=== PATIENT | male | born 1950 | race Caucasian/White ===

== ENCOUNTER → 2017-01-26 | Outpatient (CLI) | payer BC, OTHER ==
[2017-01-26 21:32] LABS: MEAN CORPUSCULAR HEMOGLOBIN 29.2 pg (27.0-33.0); MEAN CORPUSCULAR HGB CONC 33.6 g/dl (32.0-36.5); MEAN CORPUSCULAR VOLUME 86.7 fl (80.0-96.0); RED CELL DISTRIBUTION WIDTH 14.1 % (11.5-14.5); WHITE BLOOD COUNT 7.4 K/mm3 (4.0-10.0)
== END ==
LOC: M LRY 17:56
PROVIDERS: ATTEND Podiatrist
DX: M10.9 Gout, unspecified (principal)

== ENCOUNTER → 2017-02-23 | Outpatient (REF) | payer BC, OTHER ==
[2017-02-26 00:06] LABS: Lyme Disease IgG Ab 18 kDa Ban Present (.); Lyme Disease IgG Ab 23 kDa Ban Present (.); Lyme Disease IgG Ab 28 kDa Ban Present (.); Lyme Disease IgG Ab 30 kDa Ban Present (.); Lyme Disease IgG Ab 39 kDa Ban Present (.); Lyme Disease IgG Ab 41 kDa Ban Present (.); Lyme Disease IgG Ab 45 kDa Ban Present (.); Lyme Disease IgG Ab 58 kDa Ban Present (.); Lyme Disease IgG Ab 66 kDa Ban Present (.); Lyme Disease IgG Ab 93 kDa Ban Absent (.); Lyme Disease IgG West Blot Int Positive (.); Lyme Disease IgG/IgM Antibodie 2.28 ISR (0.00-0.90); Lyme Disease IgM Ab 23 kDa Ban Present (.); Lyme Disease IgM Ab 39 kDa Ban Absent (.); Lyme Disease IgM Ab 41 kDa Ban Absent (.); Lyme Disease IgM Ab Quantitati 2.63 index (0.00-0.79); Lyme Disease IgM West Blot Int Negative (.)
== END ==
LOC: M LAB REF 12:57
PROVIDERS: ATTEND Internal Medicine
DX: M25.50 Pain in unspecified joint (principal)

== ENCOUNTER → 2017-03-27 | Outpatient (REF) | payer OTHER | LOC: M LAB REF 16:18 | PROVIDERS: ATTEND Internal Medicine | DX: M25.569 Pain in unspecified knee (principal) ==

== ENCOUNTER → 2017-05-12 | Outpatient (CLI) | payer BC, OTHER ==
--- NOTE | 2017-05-12 17:12 | REP ---
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 Worsening right knee pain. No known injury. No comparison radiographs. Technique: Axial, coronal and sagittal imaging planes utilized. T1, proton density and T2-weighted scans were obtained with and without fat saturation. MRI findings: There is a moderate sized knee joint effusion. There is a medially positioned suprapatellar plica. A smaller plica is seen laterally in the suprapatellar bursa. There is moderate chondromalacia patella diffusely with partial thickness pitting of the articular cartilage. There is severe chondromalacia of the medial tibiofemoral and to a somewhat lesser extent the lateral tibiofemoral compartment. Medially there is full-thickness articular cartilage signal abnormality and irregularity over a wide area of the medial articulation. Smaller partial-thickness articular cartilage lesions are seen in the lateral compartment. There is a degenerative tear of the posterior horn of the medial meniscus extending to mid body level with fraying and irregularity of the inner free margin and some medial meniscal extrusion. There is associated medial compartment osteophyte formation. No lateral meniscal tear is appreciated. There is no evidence of medial or lateral collateral ligament disruption. Medial collateral ligament bulges medially because of the meniscal extrusion and spurring. Anterior and posterior cruciate ligaments appear intact. Patellar and quadriceps tendons have an intact appearance. There is some posteromedial joint aligned fluid containing a rectangular shaped low T1 low T2 signal intensity structure most compatible with cartilaginous loose body. This measures 7 mm in greatest diameter. No other loose body is visualized. There is a tiny slit-like Rivera's cyst. Cortical and medullary bone signal intensity are normal except for a small subcortical cyst adjacent to the proximal tibiofibular articulation in the proximal tibia. 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 Degenerative tear pattern medial meniscus. Cartilaginous loose body. Signed by Ferny Yepez MD 05/13/2017 11:17 A
== END ==
LOC: M RAD 14:57
PROVIDERS: ATTEND Orthopaedic Surgery
DX: M25.461 Effusion, right knee (principal); M17.11 Unilateral primary osteoarthritis, right knee; M94.261 Chondromalacia, right knee; S83.241A Other tear of medial meniscus, current injury, right knee, initial encounter; X58.XXXA Exposure to other specified factors, initial encounter; Y92.89 Other specified places as the place of occurrence of the external cause; Y93.89 Activity, other specified; Y99.8 Other external cause status; Z86.19 Personal history of other infectious and parasitic diseases

== ENCOUNTER → 2018-07-09 | Outpatient (REF) | payer OTHER ==
[2018-07-11 00:08] LABS: TESTOSTERONE FREE (DIRECT) 2.7 pg/mL (6.6-18.1)
== END ==
LOC: M LAB REF 12:18
PROVIDERS: ATTEND Internal Medicine
DX: N52.9 Male erectile dysfunction, unspecified (principal)

== ENCOUNTER → 2019-11-08 | Outpatient (REF) | payer MEDICARE ==
[2019-11-10 15:13] LABS: Lyme Disease IgG/IgM Antibodie <0.91 ISR (0.00-0.90); Lyme Disease IgM Ab Quantitati <0.80 index (0.00-0.79)
== END ==
LOC: M LAB REF 16:05
PROVIDERS: ATTEND Internal Medicine
DX: M25.50 Pain in unspecified joint (principal); Z11.59 Encounter for screening for other viral diseases

== ENCOUNTER → 2021-11-05 | Outpatient (CLI) | payer MEDICARE | LOC: M WUC 09:44 | PROVIDERS: ATTEND Internal Medicine | DX: M25.511 Pain in right shoulder (principal) ==

== ENCOUNTER → 2021-11-25 | Outpatient (CLI) | payer MEDICARE | LOC: M RAD 08:21 | PROVIDERS: ATTEND Internal Medicine | DX: I10 Essential (primary) hypertension (principal) ==

== ENCOUNTER → 2021-12-24 | Outpatient (CLI) | payer MEDICARE ==
[~2021-12-24] MED LIST: ISOVUE-370 76% 100ML VIAL As Ordered ONE
== END ==
LOC: M RAD 08:27
PROVIDERS: ATTEND Internal Medicine
DX: R93.5 Abnormal findings on diagnostic imaging of other abdominal regions, including retroperitoneum (principal); R91.8 Other nonspecific abnormal finding of lung field
CPT/HCPCS: 75635; Q9967

== ENCOUNTER 2023-01-29 10:18 | Day surgery (SDC) | payer MEDICARE ==
[~2023-01-29] VITALS: Ht 175.3 cm; Wt 100.7 kg
[~2023-01-29 10:18] MED LIST changes: +ACET-683 PO; +BAYE81TA7 PO; +BISO5TAB14 PO; +CHLO125TA PO; +CINN500C15 PO; +IRBE300T7 PO; -ISOVUE-370 76% 100ML VIAL As Ordered ONE; +JARD1TAB PO; +JARD1TAB3 PO; +METF10004 PO; +NS 1,000 ML IV ONE; +POTA-151 PO
[2023-01-29] MEDS ORDERED: fentaNYL 100 MCG/2 ML INJECTION As Ordered ONE (11:31)
[2023-01-29] MEDS ORDERED: propofoL 200 MG/20 ML VIAL As Ordered ONE (11:32)
[2023-01-29 12:20] VITALS: TEMP 97.6
[2023-01-29 12:32] VITALS: BP 153/70; O2SAT 97
== END 2023-01-29 12:32 | disposition home or self-care (01) ==
LOC: M OPP 10:18
PROVIDERS: ATTEND Surgery
DX: Z12.11 Encounter for screening for malignant neoplasm of colon (principal); D12.6 Benign neoplasm of colon, unspecified; K57.30 Diverticulosis of large intestine without perforation or abscess without bleeding; Z87.891 Personal history of nicotine dependence; Z79.1 Long term (current) use of non-steroidal anti-inflammatories (NSAID); Z79.82 Long term (current) use of aspirin; Z79.84 Long term (current) use of oral hypoglycemic drugs; Z79.899 Other long term (current) drug therapy
CPT/HCPCS: 45385; 88305; J3010

== ENCOUNTER → 2023-10-14 | Outpatient (REF) | payer MEDICARE ==
[~2023-10-14] MED LIST changes: +IRBE300T25 PO; -IRBE300T7 PO; -NS 1,000 ML IV ONE
[2023-10-16 23:07] LABS: CYCLIC CITRULLINATED PEPTIDE 5 units (0-19)
== END ==
LOC: M LAB REF 12:30
PROVIDERS: ATTEND Internal Medicine
DX: M25.50 Pain in unspecified joint (principal)

== ENCOUNTER → 2024-10-17 | Outpatient (CLI) | payer MEDICARE | LOC: M RAD 13:35 | PROVIDERS: ATTEND Internal Medicine | DX: Z12.2 Encounter for screening for malignant neoplasm of respiratory organs (principal); F17.211 Nicotine dependence, cigarettes, in remission ==

== ENCOUNTER → 2025-03-15 | Outpatient (CLI) | payer MEDICARE ==
[2025-03-15 14:59] LABS: BASO # 0.0 10^3/uL (0.0-0.2); BASO % 0.6 % (0.0-1.0); EOS # 0.2 10^3/uL (0.0-0.5); EOS % 2.1 % (0.0-3.0); LYMPH # 1.8 10^3/uL (1.5-5.0); LYMPH % 24.7 % (24.0-44.0); MONO # 0.5 10^3/uL (0.0-0.8); MONO % 7.4 % (2.0-8.0); NEUTROPHILS # 4.7 10^3/uL (1.5-8.5); NEUTROPHILS % 64.8 % (36.0-66.0); PLATELET COUNT, AUTOMATED 331 10^3/uL (150-450)
[2025-03-15 15:01] LABS: ALT/SGPT 24.0 U/L (7.0-40); AST/SGOT 19.0 U/L (<34); CALCIUM LEVEL 9.6 MG/DL (8.3-10.6); CARBON DIOXIDE LEVEL 27.0 MMOL/L (20-31); CHLORIDE LEVEL 103.0 MMOL/L (98-107); CHOLESTEROL LEVEL 138.0 MG/DL (<200); CHOLESTEROL RISK RATIO 2.92 (<5); CREATININE FOR GFR 1.09 MG/DL (0.70-1.30); GLOMERULAR FILTRATION RATE 72.1 (>42); LDL CHOLESTEROL 72.7 MG/DL (<100); NON-HDL-C 90.9 MG/DL; POTASSIUM SERUM 3.9 MMOL/L (3.5-5.1); SODIUM LEVEL 138.0 MMOL/L (136-145); TRIGLYCERIDES LEVEL 91.0 MG/DL (<150)
[2025-03-15 15:03] LABS: CPK CREATINE PHOSPHOKINASE 71.0 U/L (46-171)
[2025-03-15 15:34] LABS: ESTIMATED AVERAGE GLUCOSE 148.0 MG/DL (60-110)
[2025-03-17 16:08] LABS: LDL DIRECT 82 mg/dL (<100)
== END ==
LOC: M PLALAB 09:29
PROVIDERS: ATTEND Internal Medicine Cardiovascular Disease
DX: R94.31 Abnormal electrocardiogram [ECG] [EKG] (principal); R07.2 Precordial pain; R06.02 Shortness of breath; I47.10 Supraventricular tachycardia, unspecified; R00.1 Bradycardia, unspecified; Z87.891 Personal history of nicotine dependence; E78.2 Mixed hyperlipidemia; G47.33 Obstructive sleep apnea (adult) (pediatric); I10 Essential (primary) hypertension; E66.9 Obesity, unspecified; E11.69 Type 2 diabetes mellitus with other specified complication; M25.50 Pain in unspecified joint